=== PATIENT | male | born 1930 | race Caucasian/White ===

== ENCOUNTER → 2017-03-21 | Outpatient (REF) | payer MEDICARE ==
[~2017-03-21] MED LIST: ASPI81TA90 PO; COLA100C3 PO; GLYB25TA PO; METF500T PO; NEUR300C PO; OMEP40CA2 PO; TRAM50TA2 PO; TYLE325T5 PO; VITATAB11 PO; gabapentin OR; glyburide OR; metformin OR; omeprazole OR
[2017-03-21 21:04] LABS: ALBUMIN 3.9 GM/DL (3.2-5.2); ALKALINE PHOSPHATASE 66 U/L (45-117); ALT/SGPT 18 U/L (12-78); ANION GAP 8 MEQ/L (8-16); AST/SGOT 15 U/L (15-37); BILIRUBIN,TOTAL 0.7 MG/DL (0.2-1.0); BLOOD UREA NITROGEN 24 MG/DL (7-18); CALCIUM LEVEL 9.5 MG/DL (8.8-10.2); CARBON DIOXIDE LEVEL 28 MEQ/L (21-32); CHLORIDE LEVEL 105 MEQ/L (98-107); CREATININE FOR GFR 1.05 MG/DL (0.70-1.30); GLOMERULAR FILTRATION RATE > 60.0 (>35); GLUCOSE, FASTING 236 MG/DL (83-110); POTASSIUM SERUM 4.6 MEQ/L (3.5-5.1); SODIUM LEVEL 141 MEQ/L (136-145); TOTAL PROTEIN 6.9 GM/DL (6.4-8.2)
== END ==
LOC: M SFHCADAM 15:42
PROVIDERS: ATTEND Family Medicine
DX: E11.9 Type 2 diabetes mellitus without complications (principal); Z79.84 Long term (current) use of oral hypoglycemic drugs

== ENCOUNTER 2017-04-13 17:23 | Observation (INO) | payer MEDICARE, MEDICAID ==
[~2017-04-13] VITALS: Ht 172.7 cm; Wt 74.1 kg
[~2017-04-13 17:23] MED LIST changes: -COLA100C3 PO; +COLA100C5 PO; -METF500T PO; +METF500T13 PO
[2017-04-13] MEDS ORDERED: LABETALOL HCL 100 MG/20 ML VIAL IV STA ×2 (18:39→20:42)
[2017-04-13] MEDS ORDERED: MORPHINE 4 MG/ML 1ML SYRINGE IV ONE (18:45)
[2017-04-13 18:55] LABS: BASO # 0.1 K/mm3 (0.0-0.2); BASO % 1.8 % (0.0-1.0); EOS # 0.2 K/mm3 (0.0-0.50); EOS % 2.8 % (0.0-3.0); LARGE UNSTAINED CELL # 0.1 K/mm3 (0.0-0.4); LARGE UNSTAINED CELL % 2.4 % (0.0-4.0); LYMPH # 1.6 K/mm3 (1.5-4.5); LYMPH % 29.5 % (24.0-44.0); MEAN CORPUSCULAR HEMOGLOBIN 31.4 pg (27.0-33.0); MEAN CORPUSCULAR HGB CONC 32.3 g/dl (32.0-36.5); MEAN CORPUSCULAR VOLUME 97.1 fl (80.0-96.0); MONO # 0.4 K/mm3 (0.0-0.8); MONO % 6.9 % (0.0-5.0); NEUTROPHILS # 3.1 K/mm3 (1.8-7.7); NEUTROPHILS % 56.6 % (36.0-66.0); PLATELET COUNT, AUTOMATED 165 k/mm3 (150-450); WHITE BLOOD COUNT 5.6 K/mm3 (4.0-10.0)
--- NOTE | 2017-04-13 18:58 | REP ---
Chest one-view HISTORY: Chest pain Comparison: 12/11/2015 The lungs are clear. The heart is normal in size. The pulmonary vasculature is normal in appearance. Impression: No acute disease. Signed by Parrish Moore MD 04/13/2017 06:49 P
[2017-04-13 19:04] LABS: INR 0.95
--- NOTE | 2017-04-13 19:06 | REP ---
CT Head without contrast HISTORY: Left arm weakness COMPARISON: None Areas of decreased attenuation are present in the periventricular and subcortical white matter. This represents small-vessel ischemic disease. There is no intraparenchymal hemorrhage, acute infarct, mass or midline shift. The ventricular system and cortical sulci are dilated consistent with moderate volume loss. There is no extra cerebral collection. There is no fracture. The visualized sinuses are clear. IMPRESSION: 1. Small vessel ischemic disease. 2. Moderate volume loss. Signed by Parrish Moore MD 04/13/2017 06:58 P
[2017-04-13 19:29] LABS: ALBUMIN 3.6 GM/DL (3.2-5.2); ALKALINE PHOSPHATASE 59 U/L (45-117); ALT/SGPT 17 U/L (12-78); ANION GAP 6 MEQ/L (8-16); AST/SGOT 14 U/L (15-37); BILIRUBIN,DIRECT 0.1 MG/DL (0.0-0.2); BILIRUBIN,TOTAL 0.4 MG/DL (0.2-1.0); BLOOD UREA NITROGEN 18 MG/DL (7-18); CARBON DIOXIDE LEVEL 28 MEQ/L (21-32); CHLORIDE LEVEL 109 MEQ/L (98-107); CREATININE FOR GFR 0.83 MG/DL (0.70-1.30); GLOMERULAR FILTRATION RATE > 60.0 (>35); GLUCOSE, FASTING 97 MG/DL (83-110); POTASSIUM SERUM 4.2 MEQ/L (3.5-5.1); SODIUM LEVEL 143 MEQ/L (136-145); TOTAL PROTEIN 6.6 GM/DL (6.4-8.2)
[2017-04-13] MEDS ORDERED: ISOVUE-370 76% 100ML VIAL (Q9967) As Ordered ONE (20:23)
--- NOTE | 2017-04-13 21:17 | REP ---
Clinical: Shoulder and back pain with hypertension. Rule out aortic dissection. Technique: Axial contrast enhanced images from the thoracic inlet to the pubic symphysis using 100 ml Isovue 370 intravenous contrast material with imaging in the arterial phase of enhancement. Multiplanar re-formations obtained. Findings: Very minimal scattered calcific atheromatous plaques are identified involving the aorta and branch vessels specifically noted at the ostia of the celiac access and superior mesenteric artery and to a lesser extent the ostia of the right main renal artery. The aorta from the aortic root through the arch, descending thoracic and abdominal aorta to the bifurcations common iliac arteries is normal in diameter without evidence for aneurysm or dissection ascending thoracic aorta measures 3.3 cm maximal diameter; descending thoracic aorta measures 2.5 cm maximal diameter; abdominal aorta measures 2.2 cm maximal diameter. Chest: The bilateral lung torrse are well-aerated and demonstrate mild basilar scarring (left greater than right) and mild emphysematous changes with bronchiectasis. No pulmonary parenchymal consolidation, nodule or mass lesion. No pleural effusion/reaction or pneumothorax. Mediastinum including pulmonary vasculature and thoracic aorta appear normal. The heart and pericardium are unremarkable. No significant adenopathy is appreciated. Surrounding musculoskeletal structures demonstrate age-related degenerative changes without focal osseous abnormality. Abdomen/Pelvis: The liver , spleen, pancreas, bilateral adrenal glands and kidneys are essentially normal in the arterial phase of enhancement. Incidental note is made of a 1.9 cm left renal hypodensity likely representing cyst. The patient is status post cholecystectomy. The enteric system is without obstruction or acute inflammatory process. The pelvis demonstrates a significantly enlarged prostate gland measuring approximately 6.2 x 6.8 x 5.6 cm with mass effect on the base of the bladder. No ascites. No free air. No adenopathy. Musculoskeletal structures demonstrate degenerative changes without focal osseous abnormality. Impression: 1. Minimal age-related atherosclerotic changes to the aorta and branch vessels as described above without aortic aneurysm or dissection. 2. Chest demonstrates mild emphysematous changes with bronchiectasis and minimal basilar scarring without acute mediastinal or pleuroparenchymal process. 3. Abdomen and pelvis demonstrate significantly enlarged prostate gland with mass effect on the base of the bladder and no evidence for acute abdominopelvic pathology. Incidental 1.9 cm left renal hypodensity likely cyst. Signed by Jc Barnes MD 04/13/2017 09:08 P
[2017-04-13] MEDS ORDERED: VITA100066 PO (22:10)
[2017-04-13] MEDS ORDERED: METO50TA7 PO (22:10)
[2017-04-13] MEDS ORDERED: ASPI81TAEC PO (22:10)
[2017-04-13] MEDS ORDERED: GLIP2.5T2 PO (22:10)
[2017-04-13] MEDS ORDERED: METF-699 PO (22:10)
[2017-04-13] MEDS ORDERED: DEXTROSE 50% 50 ML SYRINGE IV PRN (22:15)
[2017-04-13] MEDS ORDERED: GLUCAGON FOR INJ 1 MG VIAL (J1610) SC PRN (22:15)
[2017-04-13] MEDS ORDERED: GLUCOSE 4 GM CHEW TABLET PO PRN (22:15)
[2017-04-13] MEDS ORDERED: ONDANSETRON 4MG/2ML VIAL (J2405) IV PRN (22:15)
[2017-04-13] MEDS ORDERED: ACETAMINOPHEN TAB 650MG DOSE (2X325MG) PO PRN (22:15)
[2017-04-14] VITALS (7 sets, daily range): BP systolic 119–150; BP diastolic 69–85
[2017-04-14] MEDS ORDERED: OMEPRAZOLE 20 MG CAP PO PRN (00:30)
[2017-04-14] MEDS: HEPARIN SOD (PORCINE) 5000 UNITS/ML VIAL SC SCH ×3 (00:53→20:32)
[2017-04-14] MEDS: METOPROLOL TART 50 MG TAB PO SCH ×3 (00:54→20:31)
[2017-04-14] MEDS: VITAMIN D 1,000 INTERNATIONAL UNITS TABLET PO SCH ×2 (00:54→20:32)
--- NOTE | 2017-04-14 05:16 | HPEPDOC ---
General Date of Admission Apr 13, 2017 at 22:09 Primary Care Physician: REYNALDO ALBA DO Chief Complaint The patient is a 86-year-old male admitted with a reason for visit of Hypertensive Urgency. Source: Patient Exam Limitations: No limitations History of Present Illness The patient is an 86-year-old male with PMH of HTN, hyperlipidemia, chronic LBP , GERD who presented with neck and L shoulder pain. Pt stated pain started the earlier on the day of admit. He has chronic LBP and RLE neurogenic parasthesias from spondylolisthesis and spinal stenosis. When pt arrived he was noted to have markedly elevated bp (>200/100). While he denied chest pain, dyspnea, MINER, vision changes, delirium, and focal motor deficit. Pt received labetalol 10mg followed by 20mg with his bp improving to 150's. At that time, medicine was contacted for admit of pt with htn urgency. When seen by me, pt had no complaints other than his usual lower back pain. He denied any lingering, neck or L shoulder pain, after improvement in his bp. Home Medications Scheduled (Glipizide/Metformin HCl 2.5-500 mg) 1 Tab Tab, 1 TAB PO DAILY, (Reported) Aspirin (Aspirin EC) 81 Mg Tabec, 81 MG PO DAILY, (Reported) Cholecalciferol (Vitamin D) 1,000 Unit Tab, 2,000 UNIT PO QHS, (Reported) Metformin Hydrochloride (Metformin HCl ER) 500 Mg Tab, 1,000 MG PO QPM, ( Reported) AFTER DINNER Metoprolol Tartrate (Metoprolol Tartrate) 50 Mg Tab, 50 MG PO BID, (Reported) Scheduled PRN Acetaminophen (Tylenol) 325 Mg Tab, 650 MG PO Q6H PRN for PAIN / FEVER, ( Reported) Omeprazole (Omeprazole) 40 Mg Cap, 40 MG PO DAILY PRN for HEARTBURN, (Reported) Allergies Coded Allergies: Statins (Verified Allergy, Severe, SEVERE LEG PAIN, 04/13/17) Past Medical History Medical History 1. GERD 2. Hyperlipidemia 3. DM2 4. Hypertension 5. Spinal stenosis L3 through S1 6. Spondylolisthesis L4-5 7. Right leg pain Surgical History 1. Cholecystectomy 2. Cataract surgery Family History Significant Family History: Hypertension (Mother), Other (Father with cancer) Social History * Smoker: Denies Alcohol: rarely Drugs: denies Recent Travel/Sick Contacts: Denies: Recent travel, Recent sick contacts Psychosocial History: No pertinent psych hx Review of Symptoms Constitutional: Denies: Chills, Fever, Malaise, Night Sweats, Weakness, Fatigue Eyes: Denies: Pain, Vision change ENT: Reports: Head Aches, Denies: Ear Pain, Dysphagia Skin: Denies: Rash, Lesions Pulmonary: Denies: Dyspnea, Cough Cardiovascular: Reports: Chest Pain, Denies: Palpitations, Orthopnea Gastrointestinal: Denies: Nausea, Vomiting, Abdominal Pain Genitourinary: Denies: Dysuria, Incontinence Hematologic: Denies: Bruising, Bleeding Excessively Endocrine: Denies: Polydipsia, Polyphagia, Polyuria, Heat Intolerance, Cold Intolerance Musculoskeletal: Reports: Shoulder Pain, Denies: Neck Pain, Back Pain, Leg Pain Neurological: Reports: Numbness (Chronic RLE parasthesias), Denies: Weakness, Change in speech, Confusion Psych: Reports: Mood Normal Physical Examination General Exam: Positive: Alert, Cooperative, No Acute Distress Eye Exam: Positive: Conjunctiva & lids normal, Negative: Sclera icteric ENT Exam: Positive: Atraumatic, Mucous membr. moist/pink Neck Exam: Positive: Supple, thyromegaly, Negative: JVD, Lymphadenopathy Chest Exam: Positive: Clear to auscultation, Normal air movement, Negative: Rales, Rhonchi, Wheezing Heart Exam: Positive: Rate Normal, Regular Rhythm, Normal S1, Normal S2, Negative: Tachycardic, Bradycardic, Irregular Rhythm, Gallops, Murmurs, Rubs Telemetry: Positive: No significant arrhythmia Abdomen Exam: Positive: Normal bowel sounds, Soft, Negative: BS Hyperactive, BS Hypoactive, Tenderness, Hepatospenomegaly Extremity Exam: Negative: Clubbing, Cyanosis, Edema Skin Exam: Positive: Nl turgor and temperature, Negative: Rash, Breakdown Neuro Exam: Positive: Normal Speech, Strength at 5/5 X4 ext, Cranial Nerves 3- 12 NL Psych Exam: Positive: Mental status NL, Mood NL, Memory Intact, Oriented x 3 Vital Signs Vital Signs Date Time Temp Pulse Resp B/P (MAP) Pulse Ox O2 Delivery O2 Flow Rate FiO2 04/14/17 01:00 98.0 70 18 137/74 (95) 96 Room Air Laboratory Data Labs 24H Laboratory Tests 2 04/13/17 18:40: White Blood Count 5.6, Red Blood Count 3.86L, Hemoglobin 12.1L, Hematocrit 37.5L , Mean Corpuscular Volume 97.1H, Mean Corpuscular Hemoglobin 31.4, Mean Corpuscular Hemoglobin Concent 32.3, Red Cell Distribution Width 14.0, Platelet Count 165, Neutrophils (%) (Auto) 56.6, Lymphocytes (%) (Auto) 29.5, Monocytes ( %) (Auto) 6.9H, Eosinophils (%) (Auto) 2.8, Basophils (%) (Auto) 1.8H, Neutrophils # (Auto) 3.1, Lymphocytes # (Auto) 1.6, Monocytes # (Auto) 0.4, Eosinophils # (Auto) 0.2, Basophils # (Auto) 0.1, Large Unclassified Cells % 2.4 , Large Unclassified Cells # 0.1, Prothrombin Time 12.8, Prothromb Time International Ratio 0.95, Activated Partial Thromboplast Time 27.9, Anion Gap 6L , Glomerular Filtration Rate > 60.0, Calcium Level 9.0, Aspartate Amino Transf ( AST/SGOT) 14L, Alanine Aminotransferase (ALT/SGPT) 17, Alkaline Phosphatase 59, Total Bilirubin 0.4, Direct Bilirubin 0.1, Total Creatine Kinase 138, Creatine Kinase MB 2.7, Creatine Kinase MB Relative Index 1.95, Troponin I < 0.02, B- Type Natriuretic Peptide 94.2, Total Protein 6.6, Albumin 3.6, Albumin/Globulin Ratio 1.20 04/13/17 22:05: Bedside Glucose (Misc Panel) 104 04/14/17 00:48: Total Creatine Kinase 120, Creatine Kinase MB 2.2, Creatine Kinase MB Relative Index 1.83, Troponin I < 0.02 CBC/BMP Laboratory Tests 04/13/17 18:40 Red Blood Count 3.86 L, Mean Corpuscular Volume 97.1 H, Mean Corpuscular Hemoglobin 31.4, Mean Corpuscular Hemoglobin Concent 32.3, Red Cell Distribution Width 14.0, Neutrophils (%) (Auto) 56.6, Lymphocytes (%) (Auto) 29.5, Monocytes (%) (Auto) 6.9 H, Eosinophils (%) (Auto) 2.8, Basophils (%) ( Auto) 1.8 H, Neutrophils # (Auto) 3.1, Lymphocytes # (Auto) 1.6, Monocytes # ( Auto) 0.4, Eosinophils # (Auto) 0.2, Basophils # (Auto) 0.1 Assessment/Plan This is an 86-year-old male with PMH of HTN, hyperlipidemia, chronic back pain, gerd who presents with HTN urgency 1. HTN urgency Pt's BP improved-continue to monitor on tele Continue metoprolol Serial trops, ecg 2. Hyperlipidemia Continue statin Continue asa 3. DM2 Continue glyburide Continue metformin xr 1000mg hs FS with coverage HbA1c 7.3 4. DVT prophylaxis Heparin sq Plan / VTE VTE Prophylaxis Ordered?: Yes Bong Lewis MD Apr 14, 2017 01:57
[2017-04-14] MEDS ORDERED: METAL LOCK LOOP XX ONE (06:23)
--- NOTE | 2017-04-14 07:43 | ECGEPIP ---
Stationary ECG Study [facility] - ED Test Date: 2017-04-13 Pat Name: ZHAO BOLANOS Department: Room: [place] [address] Gender: M Wall Attendant: john : 1930 Requested By: LALI Owusu Order Number: [id number] Reading MD: Eveline Zheng Measurements Intervals [place] Rate: 67 P: 17 ND: 151 QRS: 25 QRSD: 86 T: 39 QT: 364 QTc: 385 Interpretive Statements SINUS RHYTHM WITH OCCASIONAL SUPRAVENTRICULAR PREMATURE COMPLEXES NSTTW ABNORMALITY INCREASED ECTOPY 12/11/15 Electronically Signed On 04-14-2017 7:43:26 EDT by Eveline Zheng
[2017-04-14 08:32] LABS: MEAN CORPUSCULAR HEMOGLOBIN 31.7 pg (27.0-33.0); MEAN CORPUSCULAR HGB CONC 32.5 g/dl (32.0-36.5); MEAN CORPUSCULAR VOLUME 97.6 fl (80.0-96.0); WHITE BLOOD COUNT 6.6 K/mm3 (4.0-10.0)
[2017-04-14 09:43] LABS: ANION GAP 6 MEQ/L (8-16); BLOOD UREA NITROGEN 15 MG/DL (7-18); CALCIUM LEVEL 9.3 MG/DL (8.8-10.2); CARBON DIOXIDE LEVEL 29 MEQ/L (21-32); CHLORIDE LEVEL 107 MEQ/L (98-107); CREATININE FOR GFR 0.87 MG/DL (0.70-1.30); GLOMERULAR FILTRATION RATE > 60.0 (>35); GLUCOSE, FASTING 224 MG/DL (83-110); POTASSIUM SERUM 4.3 MEQ/L (3.5-5.1); SODIUM LEVEL 142 MEQ/L (136-145)
[2017-04-14] MEDS: ASPIRIN 81 MG ENTERIC TAB PO SCH (10:03)
[2017-04-14] MEDS: HumaLOG INSULIN (NovoLOG) PER UNIT SC SCH ×3 (10:03→17:53)
[2017-04-14] MEDS: glipiZIDE *2.5MG* 1/2 TABLET PO SCH (10:03)
--- NOTE | 2017-04-14 10:46 | ECGEPIP ---
Stationary ECG Study [facility] Test Date: 2017-04-14 Pat Name: ZHAO BOLANOS Department: Room: [place] [address] Gender: M Kiln Feeder: justo : 1930 Requested By: Bong Swan Order Number: [id number] Reading MD: Shannan Smith Measurements Intervals [place] Rate: 70 P: -68 OR: 210 QRS: 14 QRSD: 94 T: 23 QT: 367 QTc: 396 Interpretive Statements SINUS RHYTHM WITH FIRST DEGREE AV BLOCK WITH FREQUENT SUPRAVENTRICULAR PREMATURE COMPLEXES 1ST DEGREE BLOCK NEW C/W 04/13/17 Electronically Signed On 04-14-2017 10:45:38 EDT by Shannan Smith
--- NOTE | 2017-04-14 16:29 | IPNPDOC ---
Subjective Date Seen The patient was seen on 04/14/17. Subjective Chief Complaint/HPI The patient is a 86-year-old male admitted with a reason for visit of Hypertensive Urgency. Events since last encounter He reports he had intense left shoulder pain which promptly resolved when he came to the emergency department (after treatment with nitroglycerin and morphine). It has not returned since he's been here. He is anxious to be released, but will stay until we feel it is safe. General: Reports: Normal Appetite Pulmonary: Denies: Cough Cardiovascular: Denies: Chest Pain (since admission), Palpitations Genitourinary: Reports: Retention Psych: Reports: Mood Normal Objective Physical Examination General Exam: Positive: Alert, Cooperative, No Acute Distress Eye Exam: Positive: Conjunctiva & lids normal, Negative: Sclera icteric ENT Exam: Positive: Atraumatic, Mucous membr. moist/pink Neck Exam: Negative: JVD, Lymphadenopathy Chest Exam: Positive: Clear to auscultation, Normal air movement, Negative: Rales, Rhonchi, Wheezing Heart Exam: Positive: Rate Normal, Regular Rhythm, Normal S1, Normal S2, Negative: Gallops, Murmurs, Rubs Telemetry: Positive: No significant arrhythmia Abdomen Exam: Positive: Normal bowel sounds, Soft, Negative: Tenderness, Hepatospenomegaly Extremity Exam: Negative: Edema Skin Exam: Positive: Nl turgor and temperature, Negative: Rash, Breakdown Neuro Exam: Positive: Normal Speech Psych Exam: Positive: Mental status NL, Mood NL, Memory Intact, Oriented x 3 Assessment /Plan Problems (1) HTN (hypertension) Status: Chronic Response to Treatment: Improving Discussed With: Patient, Family with Pt Consent Problem Specific Plan: Monitor Clinically Problem Text: His blood pressure is improved substantially after he was admitted. However it is creeping up again this afternoon. He's only on Lopressor. I decided to add 10 mg of lisinopril. This may help prevent diabetic nephropathy as well as working to control blood pressure. If he has no more symptoms of unstable angina, nothing unusual on telemetry, and no more severe shoulder pain (which I considered an anginal equivalent at this time) I think he may be discharged safely tomorrow. If this is the case I think he should have a follow-up with Dr. 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 Because of the conditions in which it came on, and underwent to resolve, I'm considering this an anginal equivalent. We'll need to monitor carefully for this. (3) Urinary retention Status: Acute Problem Text: He does not typically have problems with severe urinary retention. He notes that when he is receiving morphine in the past, he did have problems with urinary retention then. He had to be straight cathed and then a Diane catheter was placed after the second episode of urinary pressure with inability to void in the emergency department. I have asked for his Diane to be discontinued and we will do every 6 hours bladder scan if he does not void in that timeframe. (4) Diabetes Status: Chronic Problem Text: We'll continue the regimen prescribed at admission for now. Plan/VTE VTE Prophylaxis Ordered?: Yes (subcutaneous heparin) Plan/Urinary Catheter Reason for insertion/continuin: Acute obstruct/retention Plan Anticipated Discharge: Home (tomorrow (04/15/17)) VS, I&O, 24H, [facility] Vital Signs/I&O Vital Signs Date Time Temp Pulse Resp B/P (MAP) Pulse Ox O2 Delivery O2 Flow Rate FiO2 04/14/17 12:00 98.0 75 20 150/80 (103) 97 Room Air I&O- Last 24 Hours up to 6 AM 04/14/17 06:00 Intake Total 120 ml Output Total 1075 ml Balance -955 ml Laboratory Data 24H LABS Laboratory Tests 2 04/13/17 18:40: White Blood Count 5.6, Red Blood Count 3.86L, Hemoglobin 12.1L, Hematocrit 37.5L , Mean Corpuscular Volume 97.1H, Mean Corpuscular Hemoglobin 31.4, Mean Corpuscular Hemoglobin Concent 32.3, Red Cell Distribution Width 14.0, Platelet Count 165, Neutrophils (%) (Auto) 56.6, Lymphocytes (%) (Auto) 29.5, Monocytes ( %) (Auto) 6.9H, Eosinophils (%) (Auto) 2.8, Basophils (%) (Auto) 1.8H, Neutrophils # (Auto) 3.1, Lymphocytes # (Auto) 1.6, Monocytes # (Auto) 0.4, Eosinophils # (Auto) 0.2, Basophils # (Auto) 0.1, Large Unclassified Cells % 2.4 , Large Unclassified Cells # 0.1, Prothrombin Time 12.8, Prothromb Time International Ratio 0.95, Activated Partial Thromboplast Time 27.9, Anion Gap 6L , Glomerular Filtration Rate > 60.0, Calcium Level 9.0, Aspartate Amino Transf ( AST/SGOT) 14L, Alanine Aminotransferase (ALT/SGPT) 17, Alkaline Phosphatase 59, Total Bilirubin 0.4, Direct Bilirubin 0.1, Total Creatine Kinase 138, Creatine Kinase MB 2.7, Creatine Kinase MB Relative Index 1.95, Troponin I < 0.02, B- Type Natriuretic Peptide 94.2, Total Protein 6.6, Albumin 3.6, Albumin/Globulin Ratio 1.20 04/13/17 22:05: Bedside Glucose (Misc Panel) 104 04/14/17 00:48: Total Creatine Kinase 120, Creatine Kinase MB 2.2, Creatine Kinase MB Relative Index 1.83, Troponin I < 0.02 04/14/17 06:06: Urine Appearance CLEAR, Urine Color STRAW, Urine pH 7.0, Urine Specific [place] 1.010, Urine Protein NEGATIVE, Urine Glucose (UA) 1+H, Urine Ketones NEGATIVE, Urine Urobilinogen 0.2, Urine Bilirubin NEGATIVE, Urine Leukocyte Esterase NEGATIVE, Urine Blood 1+H, Urine Nitrite NEGATIVE, Urine WBC (Auto) 1, Urine RBC (Auto) 4H, Urine Hyaline Casts (Auto) 0, Urine Bacteria (Auto) NEGATIVE, Urine Squamous Epithelial Cells 0, Urine Sperm (Auto) 04/14/17 07:47: Anion Gap 6L, Glomerular Filtration Rate > 60.0, Blood Urea Nitrogen 15, Creatinine 0.87, Sodium Level 142, Potassium Level 4.3, Chloride Level 107, Carbon Dioxide Level 29, Calcium Level 9.3, Total Creatine Kinase 128, Creatine Kinase MB 2.2, Creatine Kinase MB Relative Index 1.71, Troponin I < 0.02 04/14/17 11:31: Bedside Glucose (Misc Panel) 149H CBC/BMP Laboratory Tests 04/13/17 18:40 Red Blood Count 3.86 L, Mean Corpuscular Volume 97.1 H, Mean Corpuscular Hemoglobin 31.4, Mean Corpuscular Hemoglobin Concent 32.3, Red Cell Distribution Width 14.0, Neutrophils (%) (Auto) 56.6, Lymphocytes (%) (Auto) 29.5, Monocytes (%) (Auto) 6.9 H, Eosinophils (%) (Auto) 2.8, Basophils (%) ( Auto) 1.8 H, Neutrophils # (Auto) 3.1, Lymphocytes # (Auto) 1.6, Monocytes # ( Auto) 0.4, Eosinophils # (Auto) 0.2, Basophils # (Auto) 0.1 04/14/17 07:47 Red Blood Count 3.97 L, Mean Corpuscular Volume 97.6 H, Mean Corpuscular Hemoglobin 31.7, Mean Corpuscular Hemoglobin Concent 32.5, Red Cell Distribution Width 14.0, Calcium Level 9.3 Microbiology Microbiology 04/14/17 Urine Culture, Received Pending Donovan Waters MD Apr 14, 2017 16:29
[2017-04-14] MEDS ORDERED: LISINOPRIL 10 MG TAB PO SCH (16:30)
[2017-04-14] MEDS: LISINOPRIL 10 MG TAB PO SCH (16:50)
[2017-04-14] MEDS: metFORMIN XR 500MG TAB *GLUCOPHAGE XR PO SCH (16:57)
[2017-04-15] VITALS: BP 114/63
[2017-04-15 04:00] VITALS: BP 137/75
[2017-04-15 06:18] LABS: MEAN CORPUSCULAR HEMOGLOBIN 31.9 pg (27.0-33.0); MEAN CORPUSCULAR HGB CONC 33.6 g/dl (32.0-36.5); RED CELL DISTRIBUTION WIDTH 14.4 % (11.5-14.5)
[2017-04-15 06:27] LABS: ANION GAP 8 MEQ/L (8-16); BLOOD UREA NITROGEN 18 MG/DL (7-18); CARBON DIOXIDE LEVEL 25 MEQ/L (21-32); CHLORIDE LEVEL 108 MEQ/L (98-107); CREATININE FOR GFR 0.78 MG/DL (0.70-1.30); GLOMERULAR FILTRATION RATE > 60.0 (>35); GLUCOSE, FASTING 171 MG/DL (83-110); MAGNESIUM LEVEL 2.1 MG/DL (1.8-2.4); POTASSIUM SERUM 4.3 MEQ/L (3.5-5.1); SODIUM LEVEL 141 MEQ/L (136-145)
[2017-04-15 08:00] VITALS: BP 144/64
[2017-04-15] MEDS: ASPIRIN 81 MG ENTERIC TAB PO SCH (08:29)
[2017-04-15] MEDS: glipiZIDE *2.5MG* 1/2 TABLET PO SCH (08:29)
[2017-04-15 08:31] VITALS: BP 164/70
[2017-04-15] MEDS: LISINOPRIL 10 MG TAB PO SCH (08:31)
[2017-04-15] MEDS: METOPROLOL TART 50 MG TAB PO SCH (08:32)
[2017-04-15] MEDS: HEPARIN SOD (PORCINE) 5000 UNITS/ML VIAL SC SCH (08:33)
[2017-04-15] MEDS: metFORMIN XR 500MG TAB *GLUCOPHAGE XR PO SCH (08:33)
[2017-04-15] MEDS: HumaLOG INSULIN (NovoLOG) PER UNIT SC SCH (08:33)
[2017-04-15] MEDS ORDERED: LOPR1TAB6 PO (10:16)
[2017-04-15] MEDS ORDERED: AMLO5TAB2 PO (10:16)
--- NOTE | 2017-04-16 06:14 | DSES ---
DATE OF ADMISSION: 04/13/2017 DATE OF DISCHARGE: 04/15/2017 ATTENDING PHYSICIAN: Donovan Waters MD. PRIMARY CARE PROVIDER: Julia Lester DO. HISTORY OF PRESENT ILLNESS: 86-year-old male with past medical history of hypertension, hyperlipidemia, chronic lipidemia, gastroesophageal reflux disease (GERD), diabetes, presented to the emergency room after instructions from urgent care to attend to chest pain and hypertensive urgency. In the emergency room, patient was given morphine and nitroglycerin with improvement of his chest pain and left shoulder pain almost immediately. Patient was deemed appropriate for admission for observation and medical management of hypertensive urgency. HOSPITAL COURSE: Patient had some telemetry proving sinus bradycardia with some pauses, heart rate as low as 48 beats per minute. Chest pain has not returned. He has been ruled out for any ischemia as noted by both EKG, as well as troponins. Patient has been ambulating without difficulty, without dyspnea, without hypoxia, without any chest pain, without any heart palpitations, is anxiously awaiting to go home today as he feels he is back to his baseline. 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 Akhtar. It was determined to send patient home on a lesser dose of Lopressor from 50 mg twice a day to 25 mg by mouth twice a day and amlodipine [address] by mouth daily. Dr. Akhtar agrees to see patient within the next 2-week time frame for evaluation and potential stress testing. On physical exam, most recent blood pressure 154/70, heart rate in the 60-70 range on telemetry. Intake and output (I and O) are stable. General: Patient is sitting comfortably in his chair in his hospital room. He appears younger than stated age, is conversing with his daughter. Cardiovascular: Heart rate, rhythm are regular. Pulmonary: Lungs are clear. Abdomen: Soft and nontender. Neurologic: Patient is alert and oriented times three. Psychiatric: Affect is appropriate. Conversation is congruent. Patient maintains eye contact. ASSESSMENT: DISCHARGE DIAGNOSES: 1. Chest pain presumed anginal in etiology. 2. Hypertensive urgency. 3. Significant bradycardia. SECONDARY DIAGNOSES: 1. Hyperlipidemia. 2. Diabetes. 3. BPH. PLAN: Patient will be discharged home. Diet is 2-gram sodium, carbohydrate consistent. Activity is as tolerated. He will followup with his primary care provider (PCP) within the next week. He will followup with Dr. Akhtar within the next 2 weeks. MEDICATIONS: Are as follows: - amlodipine 5 mg one by mouth daily - metoprolol tartrate 25 mg by mouth twice a day - acetaminophen 325 mg two by mouth every 6 hours as needed for pain or fever - aspirin 81 mg tablet one by mouth daily - vitamin D 1000 international units two by mouth nightly - glipizide with metformin 2.5/500 mg one tablet by mouth daily - metformin ER 500 mg tablets one by mouth every evening - omeprazole 40 mg by mouth daily as needed for heartburn Patient is discharged in stable satisfactory condition with no further questions at time of discharge. Plan was discussed with both patient and his daughter and they verbalized understanding and agreement.
== END 2017-04-15 11:17 | disposition home or self-care (01) ==
LOC: EDBD 17:23 → M ED 17:23 → M ED INP 22:09 → M PCU 04-14 15:55
PROVIDERS: ATTEND Family Medicine
DX: R07.9 Chest pain, unspecified (principal); I16.0 Hypertensive urgency; R00.1 Bradycardia, unspecified; E78.5 Hyperlipidemia, unspecified; E11.9 Type 2 diabetes mellitus without complications; N40.0 Benign prostatic hyperplasia without lower urinary tract symptoms; M25.512 Pain in left shoulder; R33.9 Retention of urine, unspecified; K21.9 Gastro-esophageal reflux disease without esophagitis; M54.5 Low back pain; M48.07 Spinal stenosis, lumbosacral region; M43.17 Spondylolisthesis, lumbosacral region; M79.604 Pain in right leg; Z79.899 Other long term (current) drug therapy; Z79.82 Long term (current) use of aspirin; Z79.84 Long term (current) use of oral hypoglycemic drugs; Z88.8 Allergy status to other drugs, medicaments and biological substances
CPT/HCPCS: 36415; 70450; 71010; 71260; 74177; 80048; 80076; 81001; 82550; 82553; 83735; 83880; 84484; 85025; 85027; 85610; 85730; 87086; 93005; 93041; 94760; 96372; 96374; 96375; 96376; 99285; G0378; Q9967

== ENCOUNTER → 2017-07-19 | Outpatient (REF) | payer MEDICARE, MEDICAID ==
[~2017-07-19] MED LIST changes: +AMLO5TAB2 PO; +ASPI81TAEC PO; +GLIP2.5T2 PO; +LOPR1TAB6 PO; +METF-699 PO; +METO50TA7 PO; +VITA100066 PO
[2017-07-19 13:07] LABS: ALBUMIN 3.9 GM/DL (3.2-5.2); ALKALINE PHOSPHATASE 60 U/L (45-117); ALT/SGPT 14 U/L (12-78); ANION GAP 7 MEQ/L (8-16); AST/SGOT 15 U/L (15-37); BILIRUBIN,TOTAL 0.6 MG/DL (0.2-1.0); BLOOD UREA NITROGEN 16 MG/DL (7-18); CALCIUM LEVEL 9.7 MG/DL (8.8-10.2); CARBON DIOXIDE LEVEL 27 MEQ/L (21-32); CHLORIDE LEVEL 105 MEQ/L (98-107); CREATININE FOR GFR 0.74 MG/DL (0.70-1.30); GLOMERULAR FILTRATION RATE > 60.0 (>35); GLUCOSE, FASTING 146 MG/DL (83-110); POTASSIUM SERUM 4.6 MEQ/L (3.5-5.1); SODIUM LEVEL 139 MEQ/L (136-145); TOTAL PROTEIN 6.9 GM/DL (6.4-8.2)
== END ==
LOC: M SFHCADAM 09:34
PROVIDERS: ATTEND Family Medicine
DX: E11.9 Type 2 diabetes mellitus without complications (principal)

== ENCOUNTER → 2017-10-20 | Outpatient (REF) | payer MEDICARE, MEDICAID ==
[2017-10-20 21:05] LABS: ALBUMIN 4.1 GM/DL (3.2-5.2); ALBUMIN/GLOBULIN RATIO 1.28 (1.00-1.93); ALKALINE PHOSPHATASE 73 U/L (45-117); ALT/SGPT 19 U/L (12-78); ANION GAP 8 MEQ/L (8-16); AST/SGOT 18 U/L (7-37); BILIRUBIN,TOTAL 0.6 MG/DL (0.2-1.0); BLOOD UREA NITROGEN 28 MG/DL (7-18); CALCIUM LEVEL 9.7 MG/DL (8.8-10.2); CARBON DIOXIDE LEVEL 28 MEQ/L (21-32); CHLORIDE LEVEL 108 MEQ/L (98-107); CREATININE FOR GFR 0.84 MG/DL (0.70-1.30); GLOMERULAR FILTRATION RATE > 60.0 (>35); GLUCOSE, FASTING 76 MG/DL (83-110); POTASSIUM SERUM 4.1 MEQ/L (3.5-5.1); SODIUM LEVEL 144 MEQ/L (136-145); TOTAL PROTEIN 7.3 GM/DL (6.4-8.2)
[2017-10-20 21:40] LABS: ESTIMATED AVERAGE GLUCOSE 157 MG/DL (60-110); HEMOGLOBIN A1c 7.1 %
== END ==
LOC: M SFHCADAM 14:36
DX: E11.9 Type 2 diabetes mellitus without complications (principal)
CPT/HCPCS: 80053

== ENCOUNTER → 2018-02-08 | Outpatient (REF) | payer MEDICARE, MEDICAID ==
[2018-02-08 14:38] LABS: ESTIMATED AVERAGE GLUCOSE 174 MG/DL (60-110); HEMOGLOBIN A1c 7.7 %
== END ==
LOC: M SFHCADAM 11:13
DX: E11.9 Type 2 diabetes mellitus without complications (principal)
CPT/HCPCS: 83036

== ENCOUNTER → 2018-08-10 | Outpatient (REF) | payer MEDICARE, MEDICAID ==
[2018-08-10 19:35] LABS: ALBUMIN/GLOBULIN RATIO 1.33 (1.00-1.93); ALKALINE PHOSPHATASE 72 U/L (45-117); ALT/SGPT 19 U/L (12-78); ANION GAP 5 MEQ/L (8-16); AST/SGOT 15 U/L (7-37); BILIRUBIN,TOTAL 0.4 MG/DL (0.2-1.0); BLOOD UREA NITROGEN 21 MG/DL (7-18); CALCIUM LEVEL 9.7 MG/DL (8.8-10.2); CARBON DIOXIDE LEVEL 29 MEQ/L (21-32); CHLORIDE LEVEL 106 MEQ/L (98-107); CREATININE FOR GFR 0.88 MG/DL (0.70-1.30); GLOMERULAR FILTRATION RATE > 60.0 (>35); GLUCOSE, FASTING 140 MG/DL (70-100); POTASSIUM SERUM 5.1 MEQ/L (3.5-5.1); SODIUM LEVEL 140 MEQ/L (136-145)
[2018-08-10 20:01] LABS: ESTIMATED AVERAGE GLUCOSE 146 MG/DL (60-110); HEMOGLOBIN A1c 6.7 %
== END ==
LOC: M SFHCADAM 15:56
DX: E11.9 Type 2 diabetes mellitus without complications (principal)
CPT/HCPCS: 80053

== ENCOUNTER → 2018-12-22 | Outpatient (REF) | payer MEDICARE, MEDICAID ==
[~2018-12-22] MED LIST changes: -AMLO5TAB2 PO; +AMLO5TAB6 PO
[2018-12-22 13:56] LABS: HEMOGLOBIN A1c 6.9 %
== END ==
LOC: M SFHCADAM 11:25
PROVIDERS: ATTEND Family Medicine
DX: E11.9 Type 2 diabetes mellitus without complications (principal)
CPT/HCPCS: 83036; G0463

== ENCOUNTER → 2019-03-20 | Outpatient (REF) | payer MEDICARE, MEDICAID ==
[2019-03-20 14:11] LABS: ALBUMIN 3.7 GM/DL (3.2-5.2); ALT/SGPT 20 U/L (12-78); BILIRUBIN,TOTAL 0.7 MG/DL (0.2-1.0); BLOOD UREA NITROGEN 17 MG/DL (7-18); CALCIUM LEVEL 9.1 MG/DL (8.8-10.2); CARBON DIOXIDE LEVEL 24 MEQ/L (21-32); CHLORIDE LEVEL 107 MEQ/L (98-107); CREATININE FOR GFR 0.99 MG/DL (0.70-1.30); GLOMERULAR FILTRATION RATE > 60.0 (>35); GLUCOSE, FASTING 176 MG/DL (70-100); POTASSIUM SERUM 4.7 MEQ/L (3.5-5.1); SODIUM LEVEL 138 MEQ/L (136-145); TOTAL PROTEIN 6.9 GM/DL (6.4-8.2)
[2019-03-20 15:04] LABS: HEMOGLOBIN A1c 8.6 %
== END ==
LOC: M SFHCADAM 11:24
PROVIDERS: ATTEND Family Medicine
DX: E11.9 Type 2 diabetes mellitus without complications (principal)

== ENCOUNTER → 2019-06-21 | Outpatient (REF) | payer MEDICARE, MEDICAID ==
[2019-06-21 20:37] LABS: HEMOGLOBIN A1c 7.3 %
== END ==
LOC: M SFHCADAM 15:22
PROVIDERS: ATTEND Physician Assistant
DX: E11.9 Type 2 diabetes mellitus without complications (principal)

== ENCOUNTER 2019-08-01 16:59 | Inpatient (IN) | payer MEDICARE, MEDICAID ==
[~2019-08-01] VITALS: Ht 167.6 cm; Wt 73.8 kg
[~2019-08-01 16:59] MED LIST changes: -OMEP40CA2 PO; +OMEP40CA97 PO
[2019-08-01] MEDS ORDERED: LISI10TA4 PO (17:17)
[2019-08-01 17:31] LABS: BASO # 0.1 10^3/uL (0.0-0.2); BASO % 1.9 % (0.0-1.0); EOS # 0.3 10^3/uL (0.0-0.5); EOS % 4.4 % (0.0-3.0); HEMATOCRIT 40.2 % (42.0-52.0); HEMOGLOBIN 13.1 g/dl (13.5-17.5); LYMPH # 1.6 10^3/uL (1.5-5.0); LYMPH % 23.5 % (24.0-44.0); MEAN CORPUSCULAR HEMOGLOBIN 31.8 pg (27.0-33.0); MEAN CORPUSCULAR HGB CONC 32.6 g/dl (32.0-36.5); MEAN CORPUSCULAR VOLUME 97.6 fl (80.0-96.0); MONO # 0.6 10^3/uL (0.0-0.8); MONO % 8.4 % (0.0-5.0); NEUTROPHILS # 4.2 10^3/uL (1.5-8.5); NEUTROPHILS % 61.5 % (36.0-66.0); PLATELET COUNT, AUTOMATED 173 10^3/uL (150-450); RED BLOOD COUNT 4.12 10^6/uL (4.30-6.10); WHITE BLOOD COUNT 6.9 10^3/uL (4.0-10.0)
[2019-08-01 17:44] LABS: INR 0.96; PROTHROMBIN TIME 12.5 SECONDS (11.8-14.0)
[2019-08-01 18:12] LABS: ALBUMIN 3.9 GM/DL (3.2-5.2); ALT/SGPT 19 U/L (12-78); BILIRUBIN,DIRECT 0.1 MG/DL (0.0-0.2); BILIRUBIN,TOTAL 0.5 MG/DL (0.2-1.0); CK-MB VALUE MASS 3.4 NG/ML (<3.6); CPK CREATINE PHOSPHOKINASE 288 U/L (39-308); LIPASE 146 U/L (73-393); MB/CK RELATIVE INDEX 1.18 (< OR =4); TROPONIN I 0.03 NG/ML (< 0.10)
[2019-08-01 18:51] LABS: BLOOD UREA NITROGEN 17 MG/DL (7-18); CARBON DIOXIDE LEVEL 19 MEQ/L (21-32); CHLORIDE LEVEL 110 MEQ/L (98-107); CREATININE FOR GFR 1.03 MG/DL (0.70-1.30); FREE T4 1.22 NG/DL (0.76-1.46); GLOMERULAR FILTRATION RATE > 60.0 (>35); GLUCOSE, FASTING 111 MG/DL (70-100); POTASSIUM SERUM 4.6 MEQ/L (3.5-5.1); SODIUM LEVEL 142 MEQ/L (136-145)
[2019-08-01] MEDS ORDERED: DEXTROSE 50% 50 ML SYRINGE IV PRN (19:45)
[2019-08-01] MEDS ORDERED: GLUCAGON FOR INJ 1 MG VIAL (J1610) SC PRN (19:45)
[2019-08-01] MEDS ORDERED: GLUCOSE 4 GM CHEW TABLET PO PRN (19:45)
[2019-08-01] MEDS ORDERED: AMLO5TAB6 PO (19:46)
[2019-08-01] MEDS ORDERED: METO25TA4 PO (19:46)
[2019-08-01] MEDS ORDERED: APAP325T4 PO (19:46)
[2019-08-01] MEDS ORDERED: METF10004 PO (19:46)
[2019-08-01] MEDS ORDERED: PROAAER10 INH (19:48)
[2019-08-01] MEDS ORDERED: GLIP5TAB8 PO (19:48)
[2019-08-01] MEDS: METOPROLOL TART 12.5 MG PER 1/2 TAB PO SCH (21:00)
[2019-08-01] MEDS: HumaLOG INSULIN (NovoLOG) PER UNIT SC SCH (21:00)
[2019-08-01 22:25] VITALS: BP 152/72
--- NOTE | 2019-08-01 22:58 | HPEPDOC ---
[facility] Medical History & Physical Date of Admission Aug 01, 2019 Date of Service: Aug 01, 2019 Primary Care Physician: REYNALDO ALBA DO Attending Physician: Ever Espinal MD History and Physical TIME OF SERVICE: 8:10 PM CHIEF COMPLAINT: Lightheadedness HISTORY OF PRESENT ILLNESS: This is an 89-year-old male who presents with complaints of a few episodes of lightheadedness without loss of copiousness over the last 3 days.. Associated symptoms include shortness of breath that accompanies the episodes, an episode of right shoulder ache that radiated to his wrist, and sensation of his heart pounding. According to his family members he stopped taking some of his med ications on Tuesday, but his symptoms did not improve. He denies having a headache, denies change in his vision, denies having fevers, denies having chills, and denies feeling like he has gained weight or is retaining water. He had an upper respiratory tract infection a few weeks ago which has mostly resolved, but he continues to have a dry cough. Per Dr. Post when EMS initially evaluated in his heart rate was in the 190s with ST depression, which resolved with vagal maneuvers; he discussed the case with Dr. Maldonado who felt that this was likely related to noncompliance with medications. REVIEW OF SYSTEMS: 12 point review of systems negative except as listed in HPI PAST MEDICAL/ SURGICAL HISTORY: Chronic systolic congestive heart failure with an EF of 39%. 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 Chronic hypertension. Spinal stenosis. Status post cholecystectomy Status post cataract surgery SOCIAL HISTORY: Does not smoke FAMILY HISTORY: Colon cancer. Coronary artery disease Chronic hypertension ALLERGIES: Please see below. HOME MEDICATIONS: Please see below. PHYSICAL EXAMINATION: VITAL SIGNS: Please see below. GENERAL APPEARANCE: Well-nourished, well-developed, not in apparent distress HEENT: Normocephalic, atraumatic, mucous membranes moist and pink CARDIOVASCULAR: Regular rate and rhythm. No murmurs, rubs or gallops. Radial pulses are intact. Extremities are warm and well-perfused LUNGS: Clear to auscultation bilaterally on room air. He is not coughing. He is not short of breath. He is able to speak full sentences without having to stop to take a breath. ABDOMEN: Soft and nontender on palpation MUSCULOSKELETAL: Range of motion intact in all 4 extremities. There is no lower extremity edema NEUROLOGICAL: Cranial nerves II-12 are grossly intact. Speech is not dysarthric PSYCHIATRIC: Alert and oriented, able to understand and follow commands LABORATORY DATA: See below. IMAGING: Chest x-ray appears unremarkable but the final read is pending ASSESSMENT: is an 89-year-old male with a past medical history of chronic systolic congestive heart failure, mjm-sxbdtap-btctzaimw diabetes mellitus, chronic hyp ertension, dyslipidemia, GERD and spinal stenosis who is admitted for evaluation of presyncope. PLAN: 1. Presyncope Possibly due to noncompliance with some medications. The patient admits to abruptly discontinuing some of his meds but could name which ones His troponin, and glucose, and calcium were within normal limits. His hemoglobin is 13.1 Plan: Admit to PCU/telemetry/follow-up orthostats, serial troponins, serum magnesium and final ECG report/fall precautions 2. Chronic systolic congestive heart failure with an EF of 39% He is clinically compensated Plan: Monitor ins and outs & daily weights / low salt diet / resume home meds 3. 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 Chronic hypertension. Plan: Resume home meds 5. Right lower back pain secondary to Spinal stenosis. Plan: Resume home meds [place] Prediction Score to determine need for AC in hospitalized pts = 2 points = SCDs Disposition pending clinical course Vital Signs Vital Signs Date Time Temp Pulse Resp B/P (MAP) Pulse Ox O2 Delivery O2 Flow Rate FiO2 08/01/19 22:25 98.5 85 18 152/72 (98) 100 Room Air Laboratory Data Labs 24H Laboratory Tests 2 08/01/19 17:12: Immature Granulocyte % (Auto) 0.3, Neutrophils (%) (Auto) 61.5, Lymphocytes (%) (Auto) 23.5L, Monocytes (%) (Auto) 8.4H, Eosinophils (%) (Auto) 4.4H, Basophils (%) (Auto) 1.9H, Neutrophils # (Auto) 4.2, Lymphocytes # (Auto) 1.6, Monocytes # (Auto) 0.6, Eosinophils # (Auto) 0.3, Basophils # (Auto) 0.1, Nucleated Red Blood Cells % (auto) 0.0, Prothrombin Time 12.5, Prothromb Time International Ratio 0.96, Anion Gap 13, Glomerular Filtration Rate > 60.0, Calcium Level 10.0, Total Bilirubin 0.5, Direct Bilirubin 0.1, Aspartate Amino Transf (AST/SGOT) 18, Alanine Aminotransferase (ALT/SGPT) 19, Alkaline Phosphatase 68, Total Creatine Kinase 288, Creatine Kinase MB 3.4, Creatine Kinase MB Relative Index 1.18, Troponin I 0.03, Total Protein 7.0, Albumin 3.9, Albumin/Globulin Ratio 1.26, Lipase 146, Thyroid Stimulating Hormone (TSH) 6.190H, Free Thyroxine 1.22 08/01/19 21:12: [facility] 86 CBC/BMP Laboratory Tests 08/01/19 17:12 Home Medications Scheduled Amlodipine Besylate (Amlodipine Besylate) 5 Mg Tablet, 2.5 MG PO DAILY Aspirin (Aspirin EC) 81 Mg Tabec, 81 MG PO DAILY Cholecalciferol (Vitamin D3) (Vitamin D3) 1,000 Unit Tab, 2,000 UNIT PO DAILY Glipizide (Glipizide) 5 Mg Tablet, 5 MG PO DAILY Lisinopril (Lisinopril) 10 Mg Tablet, 10 MG PO DAILY Metformin HCl (Metformin HCl) 500 Mg Tablet, 500 MG PO BID Metoprolol Tartrate (Metoprolol Tartrate) 25 Mg Tablet, 12.5 MG PO BID Nitroglycerin (Nitroglycerin) 0.4 Mg Tab.subl, 0.4 MG SL ASDIRECTED for chest pain May repeat every 5 mins; if pain persists after 3 doses, medical attention is recommended Scheduled PRN Acetaminophen (Acetaminophen) 325 Mg Tablet, 650 MG PO Q6H PRN for PAIN Albuterol Sulfate (Proair Hfa) 8.5 Gm Hfa.aer.ad, 2 PUFF INH Q4H PRN for SOB/WHEEZING Omeprazole (Omeprazole) 40 Mg Cap, 40 MG PO DAILY PRN for HEARTBURN Allergies Coded Allergies: atorvastatin (Verified Allergy, Unknown, 08/01/19) allergic to all statins per patient, severe leg pain A-FIB/CHADSVASC A-FIB History Current/History of A-Fib/PAF?: No Current PO Anticoag Therapy: No ELIZ SMITH MD Aug 01, 2019 22:58
[2019-08-02] VITALS: BP 129/67
[2019-08-02] MEDS ORDERED: OMEPRAZOLE 20 MG CAP PO PRN (01:00)
[2019-08-02] MEDS ORDERED: ALBUTEROL 90 MCG/ACT 8GM HFA INHALER INH PRN (01:00)
[2019-08-02] MEDS ORDERED: ACETAMINOPHEN TAB 650MG DOSE (2X325MG) PO PRN (01:00)
--- NOTE | 2019-08-02 01:00 | ECGEPIP ---
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
[2019-08-02 01:42] LABS: MAGNESIUM LEVEL 1.6 MG/DL (1.8-2.4); TROPONIN I 0.08 NG/ML (< 0.10)
[2019-08-02] MEDS ORDERED: MAG SULF 1GM/100ML (MAG RUN) 1 GM in IV 1 EA IV ONE (02:15)
[2019-08-02 04:00] VITALS: BP_SYST 150; BP_SYST 155; BP_SYST 158; BP_DIAS 58; BP_DIAS 77; BP_DIAS 81; BP_DIAS 85
[2019-08-02 05:36] LABS: HEMATOCRIT 35.1 % (42.0-52.0); HEMOGLOBIN 11.5 g/dl (13.5-17.5); MEAN CORPUSCULAR HEMOGLOBIN 31.5 pg (27.0-33.0); MEAN CORPUSCULAR HGB CONC 32.8 g/dl (32.0-36.5); MEAN CORPUSCULAR VOLUME 96.2 fl (80.0-96.0); PLATELET COUNT, AUTOMATED 157 10^3/uL (150-450); RED BLOOD COUNT 3.65 10^6/uL (4.30-6.10); WHITE BLOOD COUNT 5.2 10^3/uL (4.0-10.0)
[2019-08-02 06:10] LABS: BLOOD UREA NITROGEN 14 MG/DL (7-18); CALCIUM LEVEL 9.6 MG/DL (8.8-10.2); CARBON DIOXIDE LEVEL 27 MEQ/L (21-32); CHLORIDE LEVEL 110 MEQ/L (98-107); CREATININE FOR GFR 0.97 MG/DL (0.70-1.30); GLOMERULAR FILTRATION RATE > 60.0 (>35); GLUCOSE, FASTING 160 MG/DL (70-100); POTASSIUM SERUM 4.2 MEQ/L (3.5-5.1); SODIUM LEVEL 142 MEQ/L (136-145); TROPONIN I 0.06 NG/ML (< 0.10)
[2019-08-02 08:00] VITALS: BP 169/80
--- NOTE | 2019-08-02 08:44 | REP ---
Single view chest: 08/01/2019. Indication: Chest pain. Comparison: 04/13/2017. Findings: The lungs are clear. There is no pleural effusion or pneumothorax. The cardiomediastinal silhouette is unremarkable. Impression: Clear lungs. Electronically Signed by Randolph Dinero DO 08/02/2019 08:36 A
[2019-08-02] MEDS ORDERED: PREVNAR 13 VACCINE SYRINGE (CPT CODE:90670) IM ONE (09:00)
[2019-08-02] MEDS ORDERED: FLUBLOK(EGG FREE)(QUAD)INFLUENZA VACC 0.5ML SYRINGE (90682)18YRS&OLDER IM ONE (09:00)
[2019-08-02] MEDS: VITAMIN D 1,000 INTERNATIONAL UNITS TABLET PO SCH (09:18)
[2019-08-02] MEDS: METOPROLOL TART 12.5 MG PER 1/2 TAB PO SCH ×2 (09:19→20:13)
[2019-08-02] MEDS: ASPIRIN 81 MG ENTERIC TAB PO SCH (09:19)
[2019-08-02] MEDS: LISINOPRIL 10 MG TAB PO SCH (09:20)
[2019-08-02] MEDS: HumaLOG INSULIN (NovoLOG) PER UNIT SC SCH ×4 (09:20→20:12)
--- NOTE | 2019-08-02 11:41 | IPNPDOC ---
Subjective Date Seen The patient was seen on 08/02/19. Subjective Chief Complaint/HPI Daughter at bedside Patient reports that he stopped all of his meds x 2 days because he has been feeling lightheaded when walking to the mailbox - thought he was over-medicated. Confused about the diabetic regimen he was on Feels well now Constitutional: Denies: Chills, Fever Pulmonary: Denies: Dyspnea, Cough Cardiovascular: Denies: Chest Pain, Palpitations Gastrointestinal: Denies: Nausea, Vomiting, Abdominal Pain, Diarrhea, Constipation Objective Physical Examination General Exam: Positive: Alert, No Acute Distress Chest Exam: Positive: Clear to auscultation; Negative: Rales, Rhonchi, Wheezing Heart Exam: Positive: Rate Normal, Regular Rhythm Telemetry: Positive: No significant arrhythmia, Sinus Abdomen Exam: Positive: Normal bowel sounds, Soft Extremity Exam: Negative: Edema Assessment /Plan Problems (1) Pre-syncope Status: Resolved (2) Supraventricular tachycardia Status: Resolved Problem Text: resolved with restart of metoprolol (3) HTN (hypertension) Status: Chronic Response to Treatment: Stable Problem Text: BP meds restarted - monitor tend with restart of usual meds (4) Diabetes Status: Chronic Response to Treatment: Stable Problem Text: need to clarify what dose of Glipiozide & Metformin he should take upon d/c. Both held currently Cont SSI Plan/VTE VTE Prophylaxis Ordered?: Yes (start SQ Lovenox) Plan Therapy: PT Disposition Ambulate and monitor on tele. D/C home in am if safe and no events on tele VS, I&O, 24H, Fishbone Vital Signs/I&O Vital Signs Date Time Temp Pulse Resp B/P (MAP) Pulse Ox O2 Delivery O2 Flow Rate FiO2 08/02/19 09:20 169/80 08/02/19 09:19 74 08/02/19 08:00 98.4 18 98 Room Air I&O- Last 24 Hours up to 6 AM 08/02/19 06:00 Intake Total 0 ml Output Total 850 ml Balance -850 ml Laboratory Data 24H LABS Laboratory Tests 2 08/01/19 17:12: Immature Granulocyte % (Auto) 0.3, Neutrophils (%) (Auto) 61.5, Lymphocytes (%) (Auto) 23.5L, Monocytes (%) (Auto) 8.4H, Eosinophils (%) (Auto) 4.4H, Basophils (%) (Auto) 1.9H, Neutrophils # (Auto) 4.2, Lymphocytes # (Auto) 1.6, Monocytes # (Auto) 0.6, Eosinophils # (Auto) 0.3, Basophils # (Auto) 0.1, Nucleated Red Blood Cells % (auto) 0.0, Prothrombin Time 12.5, Prothromb Time International Ratio 0.96, Anion Gap 13, Glomerular Filtration Rate > 60.0, Calcium Level 10.0, Total Bilirubin 0.5, Direct Bilirubin 0.1, Aspartate Amino Transf (AST/SGOT) 18, Alanine Aminotransferase (ALT/SGPT) 19, Alkaline Phosphatase 68, Total Creatine Kinase 288, Creatine Kinase MB 3.4, Creatine Kinase MB Relative Index 1.18, Troponin I 0.03, Total Protein 7.0, Albumin 3.9, Albumin/Globulin Ratio 1.26, Lipase 146, Thyroid Stimulating Hormone (TSH) 6.190H, Free Thyroxine 1.22 08/01/19 21:12: Bedside Glucose (Misc Panel) 86 08/02/19 01:08: Troponin I 0.08#, Magnesium Level 1.6L 08/02/19 05:21: Nucleated Red Blood Cells % (auto) 0.0, Anion Gap 5L, Glomerular Filtration Rate > 60.0, Calcium Level 9.6, Troponin I 0.06#, Magnesium Level 2.0 CBC/BMP Laboratory Tests 08/01/19 17:12 08/02/19 05:21 LUKE JAY PA-C Aug 02, 2019 11:41
[2019-08-02] MEDS: ENOXAPARIN 30 MG/0.3 ML SYR (J1650) SC SCH (12:32)
[2019-08-02 16:00] VITALS: BP 148/73
[2019-08-02 20:00] VITALS: BP 162/79
[2019-08-03] VITALS: BP 132/73
[2019-08-03 04:00] VITALS: BP 134/72
[2019-08-03 07:11] VITALS: BP 164/88
[2019-08-03 08:21] VITALS: BP_SYST 130; BP_SYST 132; BP_SYST 154; BP_DIAS 63; BP_DIAS 68; BP_DIAS 72
[2019-08-03] MEDS: ENOXAPARIN 30 MG/0.3 ML SYR (J1650) SC SCH (09:00)
[2019-08-03] MEDS: HumaLOG INSULIN (NovoLOG) PER UNIT SC SCH (09:01)
[2019-08-03] MEDS: VITAMIN D 1,000 INTERNATIONAL UNITS TABLET PO SCH (09:01)
[2019-08-03 09:02] VITALS: BP 130/63
[2019-08-03] MEDS: METOPROLOL TART 12.5 MG PER 1/2 TAB PO SCH (09:02)
[2019-08-03] MEDS: ASPIRIN 81 MG ENTERIC TAB PO SCH (09:02)
[2019-08-03] MEDS: LISINOPRIL 10 MG TAB PO SCH (09:02)
[2019-08-03] MEDS ORDERED: METF-839 PO (09:25)
[2019-08-03] MEDS ORDERED: NITR0.4S14 SL (09:27)
== END 2019-08-03 10:56 | disposition home or self-care (01) | DRG 309 ==
LOC: M ED 16:59 → EDBD 16:59 → M ED INP 19:32 → M PCU 22:15
PROVIDERS: ADMIT Internal Medicine; ATTEND Family Medicine
DX: I47.1 Supraventricular tachycardia (principal); I50.22 Chronic systolic (congestive) heart failure; R55 Syncope and collapse; E11.319 Type 2 diabetes mellitus with unspecified diabetic retinopathy without macular edema; I11.0 Hypertensive heart disease with heart failure; Z90.49 Acquired absence of other specified parts of digestive tract; Z98.49 Cataract extraction status, unspecified eye; K21.9 Gastro-esophageal reflux disease without esophagitis; Z91.14 Patient's other noncompliance with medication regimen; M48.061 Spinal stenosis, lumbar region without neurogenic claudication; Z79.82 Long term (current) use of aspirin; Z79.84 Long term (current) use of oral hypoglycemic drugs; Z79.899 Other long term (current) drug therapy; Z88.8 Allergy status to other drugs, medicaments and biological substances

== ENCOUNTER → 2019-08-07 | Outpatient (REF) | payer MEDICARE, MEDICAID ==
[~2019-08-07] MED LIST changes: +APAP325T4 PO; +GLIP5TAB8 PO; +LISI10TA4 PO; +METF-839 PO; +METF10004 PO; +METO25TA4 PO; +NITR0.4S14 SL; +PROAAER10 INH
[2019-08-07 19:40] LABS: HEMOGLOBIN 12.5 g/dl (13.5-17.5); MEAN CORPUSCULAR HEMOGLOBIN 31.1 pg (27.0-33.0); MEAN CORPUSCULAR HGB CONC 32.1 g/dl (32.0-36.5); PLATELET COUNT, AUTOMATED 188 10^3/uL (150-450); RED BLOOD COUNT 4.02 10^6/uL (4.30-6.10)
[2019-08-07 19:44] LABS: ALT/SGPT 20 U/L (12-78); BILIRUBIN,TOTAL 0.5 MG/DL (0.2-1.0); BLOOD UREA NITROGEN 14 MG/DL (7-18); CALCIUM LEVEL 9.8 MG/DL (8.8-10.2); CARBON DIOXIDE LEVEL 30 MEQ/L (21-32); CHLORIDE LEVEL 107 MEQ/L (98-107); CREATININE FOR GFR 1.19 MG/DL (0.70-1.30); GLOMERULAR FILTRATION RATE > 60.0 (>35); GLUCOSE, FASTING 106 MG/DL (70-100); POTASSIUM SERUM 4.4 MEQ/L (3.5-5.1); SODIUM LEVEL 140 MEQ/L (136-145); TOTAL PROTEIN 7.4 GM/DL (6.4-8.2)
[2019-08-07 19:56] LABS: HEMOGLOBIN A1c 7.5 %
== END ==
LOC: M SFHCADAM 15:48
PROVIDERS: ATTEND Family Medicine
DX: I10 Essential (primary) hypertension (principal); E11.9 Type 2 diabetes mellitus without complications

== ENCOUNTER → 2019-08-08 | Outpatient (REF) | payer MEDICARE, MEDICAID | LOC: M SFHCADAM 10:10 | PROVIDERS: ATTEND Family Medicine | DX: E83.42 Hypomagnesemia (principal) ==

== ENCOUNTER 2019-09-27 11:24 | Emergency (ER) | payer MEDICARE, MEDICAID ==
[~2019-09-27] VITALS: Ht 167.6 cm; Wt 68.2 kg
[2019-09-27 12:00] LABS: BASO # 0.1 10^3/uL (0.0-0.2); BASO % 1.4 % (0.0-1.0); EOS # 0.1 10^3/uL (0.0-0.5); EOS % 1.4 % (0.0-3.0); HEMATOCRIT 38.9 % (42.0-52.0); HEMOGLOBIN 12.3 g/dl (13.5-17.5); LYMPH % 12.1 % (24.0-44.0); MEAN CORPUSCULAR HGB CONC 31.6 g/dl (32.0-36.5); MONO # 0.6 10^3/uL (0.0-0.8); MONO % 7.2 % (0.0-5.0); NEUTROPHILS # 6.6 10^3/uL (1.5-8.5); NEUTROPHILS % 77.5 % (36.0-66.0); PLATELET COUNT, AUTOMATED 170 10^3/uL (150-450); RED BLOOD COUNT 3.97 10^6/uL (4.30-6.10); WHITE BLOOD COUNT 8.5 10^3/uL (4.0-10.0)
[2019-09-27 12:10] LABS: INR 1.05; PROTHROMBIN TIME 13.4 SECONDS (11.8-14.0)
[2019-09-27 12:11] LABS: PARTIAL THROMBOPLASTIN TIME 27.6 SECONDS (25.0-38.4)
[2019-09-27 12:28] LABS: ALBUMIN 3.6 GM/DL (3.2-5.2); ALT/SGPT 18 U/L (12-78); BILIRUBIN,DIRECT 0.2 MG/DL (0.0-0.2); BILIRUBIN,TOTAL 0.5 MG/DL (0.2-1.0); BLOOD UREA NITROGEN 19 MG/DL (7-18); CALCIUM LEVEL 9.6 MG/DL (8.8-10.2); CARBON DIOXIDE LEVEL 27 MEQ/L (21-32); CHLORIDE LEVEL 107 MEQ/L (98-107); CK-MB VALUE MASS 5.9 NG/ML (<3.6); CPK CREATINE PHOSPHOKINASE 194 U/L (39-308); CREATININE FOR GFR 1.13 MG/DL (0.70-1.30); GLOMERULAR FILTRATION RATE > 60.0 (>35); GLUCOSE, FASTING 258 MG/DL (70-100); LIPASE 142 U/L (73-393); MB/CK RELATIVE INDEX 3.04 (< OR =4); NT-PRO BNP 948 PG/ML (<450); POTASSIUM SERUM 4.4 MEQ/L (3.5-5.1); SODIUM LEVEL 141 MEQ/L (136-145); TOTAL PROTEIN 7.1 GM/DL (6.4-8.2); TROPONIN I 0.48 NG/ML (< 0.10)
--- NOTE | 2019-09-27 12:40 | REP ---
Single view chest: 09/27/2019. Indication: Chest pain. Comparison: 08/01/2019. Findings: Poor inspiratory result is present. There is elevation of the right greater than left hemidiaphragms. Cardiomediastinal silhouette is unchanged. The lungs are free of airspace consolidation. There is no pleural effusion or pneumothorax. Impression: No acute cardiopulmonary process. Electronically Signed by Randolph Dinero DO 09/27/2019 12:32 P
[2019-09-27] MEDS ORDERED: HEPARIN SOD (PORCINE) 5000 UNITS/ML VIAL IV ONE (14:00)
[2019-09-27] MEDS ORDERED: HEPARIN DRIP 25,000 UNITS in IV 1 EA IV SCH (14:00)
[2019-09-27 14:07] VITALS: BP 140/89
--- NOTE | 2019-09-28 22:18 | ECGEPIP ---
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
== END 2019-09-27 14:02 | disposition short-term general hospital (02) ==
LOC: M ED 11:24 → EDBD 11:24 → M ED 14:02
DX: I21.4 Non-ST elevation (NSTEMI) myocardial infarction (principal); I50.9 Heart failure, unspecified; I11.0 Hypertensive heart disease with heart failure; K21.9 Gastro-esophageal reflux disease without esophagitis; E78.5 Hyperlipidemia, unspecified; N40.0 Benign prostatic hyperplasia without lower urinary tract symptoms; M48.00 Spinal stenosis, site unspecified; Z79.899 Other long term (current) drug therapy; Z79.84 Long term (current) use of oral hypoglycemic drugs; Z79.82 Long term (current) use of aspirin; Z88.8 Allergy status to other drugs, medicaments and biological substances

== ENCOUNTER → 2019-11-12 | Outpatient (REF) | payer MEDICARE, MEDICAID ==
[2019-11-12 14:04] LABS: ALBUMIN 3.5 GM/DL (3.2-5.2); ALT/SGPT 17 U/L (12-78); BILIRUBIN,TOTAL 0.9 MG/DL (0.2-1.0); BLOOD UREA NITROGEN 24 MG/DL (7-18); CALCIUM LEVEL 9.3 MG/DL (8.8-10.2); CARBON DIOXIDE LEVEL 25 MEQ/L (21-32); CHLORIDE LEVEL 107 MEQ/L (98-107); CPK CREATINE PHOSPHOKINASE 203 U/L (39-308); CREATININE FOR GFR 1.21 MG/DL (0.70-1.30); GLOMERULAR FILTRATION RATE > 60.0 (>35); GLUCOSE, FASTING 180 MG/DL (70-100); POTASSIUM SERUM 4.6 MEQ/L (3.5-5.1); SODIUM LEVEL 139 MEQ/L (136-145); TOTAL PROTEIN 6.6 GM/DL (6.4-8.2)
[2019-11-12 14:12] LABS: HEMOGLOBIN A1c 8.3 %
== END ==
LOC: M SFHCADAM 09:52
PROVIDERS: ATTEND Family Medicine
DX: E83.42 Hypomagnesemia (principal); Z78.9 Other specified health status; E11.9 Type 2 diabetes mellitus without complications
CPT/HCPCS: 80053; 82550; 83036; G0463

== ENCOUNTER → 2020-05-13 | Outpatient (REF) | payer MEDICARE, MEDICAID ==
[~2020-05-13] MED LIST changes: +AMLO1TAB24 PO; -AMLO5TAB6 PO; -METF-699 PO; +METF-817 PO
[2020-06-09 15:04] LABS: BASO # 0.1 10^3/uL (0.0-0.2); BASO % 1.7 % (0.0-1.0); EOS # 0.3 10^3/uL (0.0-0.5); EOS % 5.2 % (0.0-3.0); HEMATOCRIT 33.2 % (42.0-52.0); HEMOGLOBIN 10.5 g/dl (13.5-17.5); LYMPH # 1.3 10^3/uL (1.5-5.0); MEAN CORPUSCULAR HEMOGLOBIN 32.1 pg (27.0-33.0); MEAN CORPUSCULAR HGB CONC 31.6 g/dl (32.0-36.5); MEAN CORPUSCULAR VOLUME 101.5 fl (80.0-96.0); MONO # 0.4 10^3/uL (0.0-0.8); MONO % 7.7 % (0.0-5.0); NEUTROPHILS # 3.6 10^3/uL (1.5-8.5); NEUTROPHILS % 63.1 % (36.0-66.0); PLATELET COUNT, AUTOMATED 140 10^3/uL (150-450); RED BLOOD COUNT 3.27 10^6/uL (4.30-6.10); WHITE BLOOD COUNT 5.7 10^3/uL (4.0-10.0)
[2020-06-26 13:48] LABS: ALBUMIN 3.8 GM/DL (3.2-5.2); ALT/SGPT 31 U/L (12-78); BILIRUBIN,TOTAL 0.5 MG/DL (0.2-1.0); BLOOD UREA NITROGEN 27 MG/DL (7-18); CALCIUM LEVEL 9.9 MG/DL (8.8-10.2); CARBON DIOXIDE LEVEL 26 MEQ/L (21-32); CHLORIDE LEVEL 111 MEQ/L (98-107); CREATININE FOR GFR 1.09 MG/DL (0.70-1.30); FREE T4 1.13 NG/DL (0.76-1.46); GLOMERULAR FILTRATION RATE > 60.0 (>35); GLUCOSE, FASTING 286 MG/DL (70-100); POTASSIUM SERUM 4.7 MEQ/L (3.5-5.1); SODIUM LEVEL 141 MEQ/L (136-145); TOTAL PROTEIN 6.5 GM/DL (6.4-8.2)
== END ==
LOC: M SFHCADAM 11:02
PROVIDERS: ATTEND Family Medicine
DX: E11.8 Type 2 diabetes mellitus with unspecified complications (principal); R63.4 Abnormal weight loss